=== PATIENT | female | born 1930 | race Asian ===

== ENCOUNTER 2017-03-20 15:36 | Inpatient (IN) | payer OTHER ==
[~2017-03-20] VITALS: Ht 152.4 cm; Wt 58.3 kg
[2017-03-20 16:47] LABS: BASOPHIL % 0.5 % (0-2); PLATELET COUNT 184 x10^3mcL (130-400)
[2017-03-20 16:49] LABS: RED CELL DISTRIBUTION WIDTH 14.9 % (11.5-14.5)
[2017-03-20 17:23] LABS: CALCIUM 9.4 mg/dL (8.5-10.1); CARBON DIOXIDE 28.6 mmol/L (21-32); CHLORIDE SERUM 94 mmol/L (98-107); CREATININE SERUM 0.8 mg/dL (0.6-1.0); GLUCOSE SERUM 95 mg/dL (74-106); POTASSIUM SERUM 3.4 mmol/L (3.5-5.1); SODIUM SERUM 131 mmol/L (136-145)
[2017-03-20 17:28] LABS: ALBUMIN 3.6 g/dL (3.4-5.0); ALKALINE PHOSPHATASE 70 U/L (46-116); ALT/SGPT 20 U/L (14-59); AST/SGOT 21 U/L (15-37); BILIRUBIN TOTAL 0.53 mg/dL (0.20-1.00); LIPASE 171 IU/L (73-393)
[2017-03-20 17:29] LABS: TOTAL PROTEIN, SERUM 8.4 g/dL (6.4-8.2)
[2017-03-20 17:38] LABS: microscopic required? YES; urine erythrocyte TRACE (NEGATIVE)
[2017-03-20] MEDS ORDERED: SIMVASTATIN5 M2 PO (19:33)
[2017-03-20] MEDS ORDERED: LEVOTHYROXIN0.025 M2 PO (19:34)
[2017-03-20] MEDS ORDERED: LOSARTAN POTASS25 M1 PO (19:35)
[2017-03-20] MEDS ORDERED: ALLOPURINOL100 MG PO (19:36)
[2017-03-20] MEDS ORDERED: METFORMIN HCL500 MG PO (19:38)
[2017-03-20 20:05] LABS: CHOLESTEROL/HDL RATIO 1.6; MAGNESIUM 1.8 mg/dL (1.8-2.4); PHOSPHOROUS 3.1 mg/dL (2.5-4.9)
[2017-03-20 20:12] LABS: T3 TOTAL 0.94 ng/mL
[2017-03-20 20:38] LABS: FREE T4 1.39 ng/dL (0.76-1.46); FREE THYROXINE INDEX 4.2 ug/dL (1.4-4.5); T4(THYROXINE) 11.8 ug/dL (4.7-13.3)
[2017-03-20 20:51] VITALS: BP 120/69
[2017-03-20 21:05] LABS: AMPHETAMINE QUAL UR NONE DETECTED (NEG <=1000)
[2017-03-20 21:43] VITALS: BP 135/67
[2017-03-21 00:55] LABS: IRON 68 ug/dL (50-170)
[2017-03-21 01:05] LABS: TOTAL IRON BINDING CAPACITY 190 ug/dL (250-450)
[2017-03-21 01:08] LABS: RED BLOOD CELLS 5.11 M/mm3 (4.10-5.10)
[2017-03-21 05:15] VITALS: BP 119/53
[2017-03-21 06:57] LABS: BASOPHIL % 0.4 % (0-2); PLATELET COUNT 160 x10^3mcL (130-400)
[2017-03-21 06:59] LABS: RED CELL DISTRIBUTION WIDTH 15.2 % (11.5-14.5); rbc morphology (normal/abnorm) ABNORMAL (NORMAL)
[2017-03-21 07:08] LABS: CALCIUM 8.5 mg/dL (8.5-10.1); CARBON DIOXIDE 27.3 mmol/L (21-32); CHLORIDE SERUM 102 mmol/L (98-107); CREATININE SERUM 0.6 mg/dL (0.6-1.0); GLUCOSE SERUM 92 mg/dL (74-106); MAGNESIUM 1.7 mg/dL (1.8-2.4); PHOSPHOROUS 3.2 mg/dL (2.5-4.9); POTASSIUM SERUM 3.4 mmol/L (3.5-5.1); SODIUM SERUM 137 mmol/L (136-145)
[2017-03-21 09:01] VITALS: BP 141/48
[2017-03-21 14:10] VITALS: BP 155/49
[2017-03-21 17:21] VITALS: BP 147/46
[2017-03-21 21:21] VITALS: BP 154/61
[2017-03-22 05:25] VITALS: BP 105/66
[2017-03-22 06:50] LABS: BASOPHIL % 0.4 % (0-2); PLATELET COUNT 167 x10^3mcL (130-400)
[2017-03-22 07:07] LABS: RED CELL DISTRIBUTION WIDTH 15.2 % (11.5-14.5)
[2017-03-22 07:09] LABS: CALCIUM 8.7 mg/dL (8.5-10.1); CARBON DIOXIDE 28.9 mmol/L (21-32); CHLORIDE SERUM 103 mmol/L (98-107); CREATININE SERUM 0.6 mg/dL (0.6-1.0); GLUCOSE SERUM 83 mg/dL (74-106); POTASSIUM SERUM 3.5 mmol/L (3.5-5.1); SODIUM SERUM 139 mmol/L (136-145)
[2017-03-22 07:28] VITALS: Ht 152.4 cm; Wt 58.3 kg
[2017-03-22 10:26] VITALS: BP 134/65
[2017-03-22 12:30] VITALS: BP 160/66
[2017-03-22 16:00] VITALS: BP 151/66
[2017-03-22 21:19] VITALS: BP 94/44
[2017-03-23 05:46] VITALS: BP 111/81
[2017-03-23 07:54] LABS: BASOPHIL % 0.1 % (0-2); PLATELET COUNT 144 x10^3mcL (130-400)
[2017-03-23 08:09] LABS: CALCIUM 8.2 mg/dL (8.5-10.1); CARBON DIOXIDE 25.8 mmol/L (21-32); CHLORIDE SERUM 98 mmol/L (98-107); CREATININE SERUM 0.8 mg/dL (0.6-1.0); GLUCOSE SERUM 107 mg/dL (74-106); MAGNESIUM 1.6 mg/dL (1.8-2.4); PHOSPHOROUS 3.3 mg/dL (2.5-4.9); POTASSIUM SERUM 3.1 mmol/L (3.5-5.1); SODIUM SERUM 132 mmol/L (136-145)
[2017-03-23 09:51] VITALS: BP 126/78
[2017-03-23 13:07] VITALS: BP 148/67
[2017-03-23] MEDS ORDERED: KEFLEX500 M1 PO ×2 (14:00→16:22)
[2017-03-23] MEDS ORDERED: LAC PO ×2 (14:01→16:22)
[2017-03-23 14:41] VITALS: BP 148/67
[2017-03-23] MEDS ORDERED: CARCD120 PO ×2 (15:10→16:22)
== END 2017-03-23 15:37 | disposition home health service (06) | DRG 242 ==
LOC: ED 15:36 → DU 19:23
PROVIDERS: Emergency Medicine; Family Medicine; Internal Medicine Interventional Cardiology; ADMIT Student in an Organized Health Care Education/Training Program
PROC: 02HK3JZ Insertion of Pacemaker Lead into Right Ventricle, Percutaneous Approach (ICD-10-PCS; 2017-03-22)
PROC: 0JH604Z Insertion of Pacemaker, Single Chamber into Chest Subcutaneous Tissue and Fascia, Open Approach (ICD-10-PCS; principal; 2017-03-22 13:30)
DX: I48.91 Unspecified atrial fibrillation (principal); G93.41 Metabolic encephalopathy; N39.0 Urinary tract infection, site not specified; E87.1 Hypo-osmolality and hyponatremia; D68.69 Other thrombophilia; S00.03XA Contusion of scalp, initial encounter; E11.51 Type 2 diabetes mellitus with diabetic peripheral angiopathy without gangrene; M10.9 Gout, unspecified; E87.6 Hypokalemia; E87.8 Other disorders of electrolyte and fluid balance, not elsewhere classified; R31.9 Hematuria, unspecified; D50.9 Iron deficiency anemia, unspecified; E03.9 Hypothyroidism, unspecified; Y93.89 Activity, other specified; W17.89XA Other fall from one level to another, initial encounter; Y92.018 Other place in single-family (private) house as the place of occurrence of the external cause; Z91.81 History of falling; Z68.25 Body mass index [BMI] 25.0-25.9, adult
CPT/HCPCS: 83880; 84439; 94150; C1786; J0690; J0696; J2001; J2250; J3010; J3370; J3475; J3490; J7030; J7040; Q0092; Q9967

== ENCOUNTER 2017-11-23 17:59 | Inpatient (IN) | payer OTHER ==
[~2017-11-23] VITALS: Ht 152.4 cm; Wt 56.4 kg
[~2017-11-23 17:59] MED LIST: ALLOPURINOL100 MG PO; CARCD120 PO; KEFLEX500 M1 PO; LAC PO; LEVOTHYROXIN0.025 M2 PO; LOSARTAN POTASS25 M1 PO; METFORMIN HCL500 MG PO; SIMVASTATIN5 M2 PO
[2017-11-23 18:07] VITALS: Ht 152.4 cm; Wt 56.4 kg
[2017-11-23 20:07] LABS: BASOPHIL % 0.5 % (0-2); PLATELET COUNT 258 x10^3mcL (130-400)
[2017-11-23 20:11] LABS: RED CELL DISTRIBUTION WIDTH 18.4 % (11.5-14.5)
[2017-11-23 20:16] LABS: CALCIUM 9.1 mg/dL (8.5-10.1); CARBON DIOXIDE 30.1 mmol/L (21-32); CHLORIDE SERUM 100 mmol/L (98-107); CREATININE SERUM 0.9 mg/dL (0.6-1.0); GLUCOSE SERUM 90 mg/dL (74-106); POTASSIUM SERUM 3.5 mmol/L (3.5-5.1); SODIUM SERUM 136 mmol/L (136-145)
[2017-11-23 20:20] LABS: ALKALINE PHOSPHATASE 136 U/L (46-116); ALT/SGPT 51 U/L (14-59); AST/SGOT 32 U/L (15-37); LIPASE 164 IU/L (73-393); TOTAL PROTEIN, SERUM 7.3 g/dL (6.4-8.2)
[2017-11-23 20:22] LABS: ALBUMIN 2.8 g/dL (3.4-5.0)
[2017-11-23 20:41] LABS: UA SPECIFIC GRAVITY <=1.005 (1.005-1.035); microscopic required? YES; urine erythrocyte TRACE (NEGATIVE)
[2017-11-23] MEDS ORDERED: ALLOPURINOL100 MG PO (22:22)
[2017-11-23] MEDS ORDERED: METFORMIN HYDR500 M1 PO (22:22)
[2017-11-23] MEDS ORDERED: XARELTO10 M1 PO (22:23)
[2017-11-23] MEDS ORDERED: FUROSEMIDE20 MG PO (22:23)
[2017-11-23] MEDS ORDERED: LOSARTAN POTASS50 M1 PO (22:23)
[2017-11-23] MEDS ORDERED: POTASSIUM CHLO10 MEQ PO (22:23)
[2017-11-23] MEDS ORDERED: TOPROL XL25 MG PO (22:23)
[2017-11-23] MEDS ORDERED: LEVOTHYROXIN0.025 M2 PO (22:25)
[2017-11-23] MEDS ORDERED: LEVOTHYROXINE0.05 M2 PO (22:25)
[2017-11-23] MEDS ORDERED: FERROUS SULFAT325 M2 PO (22:26)
[2017-11-23] MEDS ORDERED: RENAL CAPS1 SGL PO (22:26)
[2017-11-23] MEDS ORDERED: CALCIUM + D3 E1 EACH PO (22:27)
[2017-11-23 23:01] VITALS: BP 151/86
[2017-11-23 23:40] LABS: FREE T4 1.44 ng/dL (0.76-1.46); FREE THYROXINE INDEX 3.2 ug/dL (1.4-4.5); T4(THYROXINE) 8.5 ug/dL (4.7-13.3)
[2017-11-23 23:42] LABS: CHOLESTEROL/HDL RATIO 2.1; MAGNESIUM 1.7 mg/dL (1.8-2.4); PHOSPHOROUS 2.9 mg/dL (2.5-4.9)
[2017-11-24] VITALS (7 sets, daily range): BP systolic 133–156; BP diastolic 67–92
[2017-11-24 00:37] LABS: T3 TOTAL 0.87 ng/mL
[2017-11-24 05:49] LABS: AMPHETAMINE QUAL UR NONE DETECTED (See below)
[2017-11-24 06:26] LABS: PLATELET COUNT 262 x10^3mcL (130-400)
[2017-11-24 06:38] LABS: CALCIUM 8.4 mg/dL (8.5-10.1); CARBON DIOXIDE 31.8 mmol/L (21-32); CHLORIDE SERUM 105 mmol/L (98-107); CREATININE SERUM 0.7 mg/dL (0.6-1.0); GLUCOSE SERUM 101 mg/dL (74-106); MAGNESIUM 1.8 mg/dL (1.8-2.4); SODIUM SERUM 139 mmol/L (136-145)
[2017-11-24 06:43] LABS: POTASSIUM SERUM 2.9 mmol/L (3.5-5.1)
[2017-11-24 07:34] LABS: BASOPHIL % 0 % (0-2); rbc morphology (normal/abnorm) ABNORMAL (NORMAL)
[2017-11-24 07:35] LABS: IRON 20 ug/dL (50-170); TOTAL IRON BINDING CAPACITY 224 ug/dL (250-450)
[2017-11-24 13:22] LABS: CALCIUM 9.7 mg/dL (8.5-10.1); CARBON DIOXIDE 32.3 mmol/L (21-32); CHLORIDE SERUM 102 mmol/L (98-107); CREATININE SERUM 0.8 mg/dL (0.6-1.0); GLUCOSE SERUM 103 mg/dL (74-106); POTASSIUM SERUM 3.2 mmol/L (3.5-5.1); SODIUM SERUM 140 mmol/L (136-145)
[2017-11-25 05:40] VITALS: BP 129/67
[2017-11-25 06:35] LABS: BASOPHIL % 0.1 % (0-2); PLATELET COUNT 238 x10^3mcL (130-400)
[2017-11-25 07:06] LABS: ALKALINE PHOSPHATASE 125 U/L (46-116); ALT/SGPT 43 U/L (14-59); AST/SGOT 30 U/L (15-37); BILIRUBIN DIRECT 0.49 mg/dL (0.0-0.2); BILIRUBIN TOTAL 0.98 mg/dL (0.20-1.00); CALCIUM 8.8 mg/dL (8.5-10.1); CARBON DIOXIDE 27.1 mmol/L (21-32); CHLORIDE SERUM 101 mmol/L (98-107); CREATININE SERUM 0.7 mg/dL (0.6-1.0); GLUCOSE SERUM 92 mg/dL (74-106); MAGNESIUM 1.8 mg/dL (1.8-2.4); POTASSIUM SERUM 3.9 mmol/L (3.5-5.1); SODIUM SERUM 137 mmol/L (136-145); TOTAL PROTEIN, SERUM 7.1 g/dL (6.4-8.2)
[2017-11-25 07:13] LABS: ALBUMIN 2.7 g/dL (3.4-5.0); RED CELL DISTRIBUTION WIDTH 18.7 % (11.5-14.5)
[2017-11-25 07:49] VITALS: BP 153/75
[2017-11-25 13:09] VITALS: BP 120/54
[2017-11-25 17:03] VITALS: BP 112/58
[2017-11-25 21:01] VITALS: BP 141/72
[2017-11-26 06:22] VITALS: BP 139/77
[2017-11-26 07:46] LABS: BASOPHIL % 0.1 % (0-2); PLATELET COUNT 259 x10^3mcL (130-400)
[2017-11-26 08:07] LABS: CALCIUM 9.6 mg/dL (8.5-10.1); CARBON DIOXIDE 28.8 mmol/L (21-32); CHLORIDE SERUM 102 mmol/L (98-107); CREATININE SERUM 0.7 mg/dL (0.6-1.0); GLUCOSE SERUM 124 mg/dL (74-106); PHOSPHOROUS 2.6 mg/dL (2.5-4.9); POTASSIUM SERUM 4.2 mmol/L (3.5-5.1); SODIUM SERUM 137 mmol/L (136-145)
[2017-11-26 08:33] LABS: RED CELL DISTRIBUTION WIDTH 18.3 % (11.5-14.5)
[2017-11-26 08:40] LABS: rbc morphology (normal/abnorm) ABNORMAL (NORMAL)
[2017-11-26 13:18] VITALS: BP 102/71
[2017-11-26 17:27] VITALS: BP 119/55
[2017-11-26 21:00] VITALS: BP 122/57
[2017-11-27 05:17] VITALS: BP 101/71
[2017-11-27 07:03] LABS: BASOPHIL % 0.2 % (0-2); PLATELET COUNT 205 x10^3mcL (130-400)
[2017-11-27 07:05] LABS: RED CELL DISTRIBUTION WIDTH 19.4 % (11.5-14.5); rbc morphology (normal/abnorm) ABNORMAL (NORMAL)
[2017-11-27 07:15] LABS: CARBON DIOXIDE 27.2 mmol/L (21-32); CHLORIDE SERUM 99 mmol/L (98-107); CREATININE SERUM 0.6 mg/dL (0.6-1.0); GLUCOSE SERUM 107 mg/dL (74-106); MAGNESIUM 1.8 mg/dL (1.8-2.4); PHOSPHOROUS 2.4 mg/dL (2.5-4.9); POTASSIUM SERUM 4.1 mmol/L (3.5-5.1); SODIUM SERUM 132 mmol/L (136-145)
[2017-11-27 09:44] VITALS: BP 130/45
[2017-11-27 14:43] VITALS: BP 117/65
[2017-11-27] MEDS ORDERED: METP PO (16:39)
[2017-11-27] MEDS ORDERED: FER300 PO (16:44)
[2017-11-27 18:10] VITALS: BP 107/77
[2017-11-27 19:28] VITALS: BP 107/77
== END 2017-11-27 20:57 | disposition home or self-care (01) | DRG 444 ==
LOC: ED 17:59 → DU 22:02
PROVIDERS: Emergency Medicine; Internal Medicine; Internal Medicine Gastroenterology
PROC: 0DJ08ZZ Inspection of Upper Intestinal Tract, Via Natural or Artificial Opening Endoscopic (ICD-10-PCS; principal; 2017-11-24 10:00)
PROC: 0DBG8ZZ Excision of Left Large Intestine, Via Natural or Artificial Opening Endoscopic (ICD-10-PCS; 2017-11-26 10:30)
PROC: 0DBF8ZZ Excision of Right Large Intestine, Via Natural or Artificial Opening Endoscopic (ICD-10-PCS; 2017-11-26 10:30)
DX: K80.50 Calculus of bile duct without cholangitis or cholecystitis without obstruction (principal); E43 Unspecified severe protein-calorie malnutrition; I50.43 Acute on chronic combined systolic (congestive) and diastolic (congestive) heart failure; K57.30 Diverticulosis of large intestine without perforation or abscess without bleeding; I11.0 Hypertensive heart disease with heart failure; K29.70 Gastritis, unspecified, without bleeding; K64.8 Other hemorrhoids; K63.5 Polyp of colon; E11.51 Type 2 diabetes mellitus with diabetic peripheral angiopathy without gangrene; E11.65 Type 2 diabetes mellitus with hyperglycemia; E83.42 Hypomagnesemia; I48.2 Chronic atrial fibrillation; M10.9 Gout, unspecified; D53.9 Nutritional anemia, unspecified; E03.9 Hypothyroidism, unspecified; Z68.23 Body mass index [BMI] 23.0-23.9, adult; Z79.84 Long term (current) use of oral hypoglycemic drugs; Z79.01 Long term (current) use of anticoagulants; Z95.0 Presence of cardiac pacemaker
CPT/HCPCS: 36600; 43235; 45378; 78226; 83880; 84439; 97116-GP; 97530-GP; 97535-GP; A9537; J1200; J1610; J1940; J2250; J2310; J3010; J3480; J3490; J7030; J7060; J7070; Q0092

== ENCOUNTER 2018-08-15 14:12 | Inpatient (IN) | payer OTHER ==
[~2018-08-15] VITALS: Ht 152.4 cm; Wt 47.9 kg
[~2018-08-15 14:12] MED LIST changes: +CALCIUM + D3 E1 EACH PO; +FER300 PO; +FERROUS SULFAT325 M2 PO; +FUROSEMIDE20 MG PO; +LEVOTHYROXINE0.05 M2 PO; +LOSARTAN POTASS50 M1 PO; +METFORMIN HYDR500 M1 PO; +METP PO; +POTASSIUM CHLO10 MEQ PO; +RENAL CAPS1 SGL PO; +TOPROL XL25 MG PO; +XARELTO10 M1 PO
[2018-08-15 14:22] VITALS: Ht 152.4 cm; Wt 47.9 kg
[2018-08-15 17:42] LABS: BASOPHIL % 0.3 % (0-2); PLATELET COUNT 364 x10^3mcL (130-400)
[2018-08-15 17:46] LABS: CALCIUM 9.1 mg/dL (8.5-10.1); CARBON DIOXIDE 27.1 mmol/L (21-32); CHLORIDE SERUM 93 mmol/L (98-107); CREATININE SERUM 0.8 mg/dL (0.6-1.0); GLUCOSE SERUM 127 mg/dL (74-106); POTASSIUM SERUM 3.7 mmol/L (3.5-5.1); SODIUM SERUM 128 mmol/L (136-145)
[2018-08-15 17:53] LABS: ALBUMIN 2.6 g/dL (3.4-5.0); ALKALINE PHOSPHATASE 422 U/L (46-116); ALT/SGPT 65 U/L (14-59); AST/SGOT 79 U/L (15-37); BILIRUBIN TOTAL 4.44 mg/dL (0.20-1.00); LIPASE 220 IU/L (73-393)
[2018-08-15 19:05] LABS: MAGNESIUM 1.5 mg/dL (1.8-2.4); PHOSPHOROUS 2.8 mg/dL (2.5-4.9)
[2018-08-15 19:13] LABS: CHOLESTEROL/HDL RATIO 5.5
[2018-08-15] MEDS ORDERED: METOPROLOL ER-1 EAC1 PO (20:04)
[2018-08-15 20:05] LABS: microscopic required? YES; urine erythrocyte 2+ (NEGATIVE)
[2018-08-15] MEDS ORDERED: XARELTO10 M1 PO (20:05)
[2018-08-15] MEDS ORDERED: METOPROLOL ER-1 EAC2 PO (20:08)
[2018-08-15 20:12] LABS: AMPHETAMINE QUAL UR NONE DETECTED (See below)
[2018-08-16] VITALS (11 sets, daily range): BP systolic 83–124; BP diastolic 46–70
[2018-08-16 06:01] LABS: BASOPHIL % 0.1 % (0-2); PLATELET COUNT 293 x10^3mcL (130-400)
[2018-08-16 06:15] LABS: ALBUMIN 2.5 g/dL (3.4-5.0); ALKALINE PHOSPHATASE 300 U/L (46-116); ALT/SGPT 47 U/L (14-59); AST/SGOT 63 U/L (15-37); BILIRUBIN TOTAL 4.25 mg/dL (0.20-1.00); CALCIUM 8.3 mg/dL (8.5-10.1); CARBON DIOXIDE 27.1 mmol/L (21-32); CHLORIDE SERUM 98 mmol/L (98-107); CREATININE SERUM 0.8 mg/dL (0.6-1.0); GLUCOSE SERUM 97 mg/dL (74-106); MAGNESIUM 1.8 mg/dL (1.8-2.4); PHOSPHOROUS 3.2 mg/dL (2.5-4.9); POTASSIUM SERUM 3.5 mmol/L (3.5-5.1); SODIUM SERUM 132 mmol/L (136-145); TOTAL PROTEIN, SERUM 6.4 g/dL (6.4-8.2)
[2018-08-17 06:30] VITALS: BP 131/73
[2018-08-17 06:48] LABS: ALBUMIN 2.1 g/dL (3.4-5.0); ALKALINE PHOSPHATASE 279 U/L (46-116); ALT/SGPT 54 U/L (14-59); AST/SGOT 69 U/L (15-37); CALCIUM 8.3 mg/dL (8.5-10.1); CARBON DIOXIDE 26.2 mmol/L (21-32); CHLORIDE SERUM 97 mmol/L (98-107); CREATININE SERUM 0.8 mg/dL (0.6-1.0); GLUCOSE SERUM 155 mg/dL (74-106); MAGNESIUM 2.1 mg/dL (1.8-2.4); POTASSIUM SERUM 3.1 mmol/L (3.5-5.1); SODIUM SERUM 131 mmol/L (136-145); TOTAL PROTEIN, SERUM 6.1 g/dL (6.4-8.2)
[2018-08-17 07:03] LABS: BASOPHIL % 0 % (0-2); PLATELET COUNT 322 x10^3mcL (130-400); RED CELL DISTRIBUTION WIDTH 18.8 % (11.5-14.5)
[2018-08-17 08:01] VITALS: BP 166/70
[2018-08-17 10:21] VITALS: BP 97/50
[2018-08-17 12:26] VITALS: BP 105/63
[2018-08-17 16:31] VITALS: BP 122/58
[2018-08-17 19:59] VITALS: BP 138/74
[2018-08-18 06:10] LABS: PLATELET COUNT 341 x10^3mcL (130-400)
[2018-08-18 06:21] LABS: RED CELL DISTRIBUTION WIDTH 19.2 % (11.5-14.5)
[2018-08-18 06:33] LABS: ALKALINE PHOSPHATASE 252 U/L (46-116); ALT/SGPT 46 U/L (14-59); AST/SGOT 47 U/L (15-37); BILIRUBIN TOTAL 1.69 mg/dL (0.20-1.00); CALCIUM 8.5 mg/dL (8.5-10.1); CARBON DIOXIDE 28.5 mmol/L (21-32); CHLORIDE SERUM 103 mmol/L (98-107); CREATININE SERUM 0.6 mg/dL (0.6-1.0); GLUCOSE SERUM 103 mg/dL (74-106); LIPASE 130 IU/L (73-393); POTASSIUM SERUM 3.8 mmol/L (3.5-5.1); SODIUM SERUM 136 mmol/L (136-145); TOTAL PROTEIN, SERUM 6.3 g/dL (6.4-8.2)
[2018-08-18 06:34] LABS: ALBUMIN 2.1 g/dL (3.4-5.0)
[2018-08-18 07:55] VITALS: BP 119/89
[2018-08-18 12:10] VITALS: BP 115/63
[2018-08-18 12:55] LABS: BAND NEUTROPHIL 0 % (0-10); BASOPHIL 0 % (0-2); MONOCYTE 9 % (0-7); SEGMENTED NEUTROPHILS 77 % (37-75); rbc morphology (normal/abnorm) ABNORMAL (NORMAL)
[2018-08-18 12:56] LABS: ovalocyte/elliptocyte 1+; target cell (codocyte) 1+
[2018-08-18 16:17] VITALS: BP 100/65
[2018-08-18 20:20] VITALS: BP 150/66
[2018-08-19 05:53] VITALS: BP 160/73
[2018-08-19 06:15] LABS: ALKALINE PHOSPHATASE 226 U/L (46-116); ALT/SGPT 44 U/L (14-59); AST/SGOT 45 U/L (15-37); BILIRUBIN TOTAL 1.4 mg/dL (0.20-1.00); CALCIUM 8.4 mg/dL (8.5-10.1); CARBON DIOXIDE 27.8 mmol/L (21-32); CHLORIDE SERUM 105 mmol/L (98-107); CREATININE SERUM 0.8 mg/dL (0.6-1.0); GLUCOSE SERUM 132 mg/dL (74-106); POTASSIUM SERUM 4.4 mmol/L (3.5-5.1); SODIUM SERUM 138 mmol/L (136-145); TOTAL PROTEIN, SERUM 6.2 g/dL (6.4-8.2)
[2018-08-19 06:28] LABS: ALBUMIN 1.9 g/dL (3.4-5.0)
[2018-08-19 06:43] LABS: PLATELET COUNT 337 x10^3mcL (130-400)
[2018-08-19 06:49] LABS: BASOPHIL % 0 % (0-2); RED CELL DISTRIBUTION WIDTH 19.6 % (11.5-14.5)
[2018-08-19 08:00] VITALS: BP 155/85
[2018-08-19 12:23] VITALS: BP 145/86
[2018-08-19 14:06] VITALS: BP 148/74
[2018-08-19 18:03] VITALS: BP 156/84
[2018-08-19 20:49] VITALS: BP 131/61
[2018-08-20 06:03] VITALS: BP 147/77
[2018-08-20 07:19] LABS: BASOPHIL % 0.4 % (0-2); PLATELET COUNT 331 x10^3mcL (130-400)
[2018-08-20 07:30] LABS: RED CELL DISTRIBUTION WIDTH 19.9 % (11.5-14.5)
[2018-08-20 07:53] LABS: ALKALINE PHOSPHATASE 200 U/L (46-116); ALT/SGPT 41 U/L (14-59); AST/SGOT 44 U/L (15-37); BILIRUBIN TOTAL 1.2 mg/dL (0.20-1.00); CALCIUM 8.6 mg/dL (8.5-10.1); CARBON DIOXIDE 28.6 mmol/L (21-32); CHLORIDE SERUM 105 mmol/L (98-107); CREATININE SERUM 0.7 mg/dL (0.6-1.0); GLUCOSE SERUM 79 mg/dL (74-106); MAGNESIUM 1.8 mg/dL (1.8-2.4); POTASSIUM SERUM 3.9 mmol/L (3.5-5.1); SODIUM SERUM 139 mmol/L (136-145)
[2018-08-20 07:54] LABS: ALBUMIN 1.9 g/dL (3.4-5.0); TOTAL PROTEIN, SERUM 6.1 g/dL (6.4-8.2)
[2018-08-20 09:49] VITALS: BP 111/32
[2018-08-20 17:26] VITALS: BP 161/78
[2018-08-20 18:31] VITALS: BP 145/79
[2018-08-20 19:32] VITALS: BP 130/65
[2018-08-21 06:09] VITALS: BP 165/76
[2018-08-21 08:46] VITALS: BP 141/79
[2018-08-21 17:31] VITALS: BP 145/85
[2018-08-21 20:23] VITALS: BP 120/72
[2018-08-22 06:09] VITALS: BP 157/81
[2018-08-22 06:45] LABS: BASOPHIL % 0.2 % (0-2); PLATELET COUNT 321 x10^3mcL (130-400)
[2018-08-22 06:59] LABS: ALKALINE PHOSPHATASE 169 U/L (46-116); ALT/SGPT 32 U/L (14-59); AST/SGOT 33 U/L (15-37); CALCIUM 8.5 mg/dL (8.5-10.1); CARBON DIOXIDE 28.1 mmol/L (21-32); CHLORIDE SERUM 105 mmol/L (98-107); CREATININE SERUM 0.6 mg/dL (0.6-1.0); GLUCOSE SERUM 89 mg/dL (74-106); MAGNESIUM 1.9 mg/dL (1.8-2.4); POTASSIUM SERUM 3.7 mmol/L (3.5-5.1); SODIUM SERUM 139 mmol/L (136-145); TOTAL PROTEIN, SERUM 6.2 g/dL (6.4-8.2)
[2018-08-22 07:08] LABS: RED CELL DISTRIBUTION WIDTH 19.9 % (11.5-14.5)
[2018-08-22 07:12] LABS: ALBUMIN 1.9 g/dL (3.4-5.0)
[2018-08-22 07:45] VITALS: BP 154/77
[2018-08-22 14:10] VITALS: BP 154/77
== END 2018-08-22 17:19 | disposition home or self-care (01) | DRG 854 ==
LOC: ED 14:12 → DU 19:04 → IC 19:04 → MU 19:04 → IC 08-16 02:13 → DU 08-16 12:27 → MU 08-19 11:55
PROVIDERS: Emergency Medicine; Internal Medicine; Internal Medicine Pulmonary Disease; Surgery; ADMIT Internal Medicine Pulmonary Disease
PROC: 0FC98ZZ Extirpation of Matter from Common Bile Duct, Via Natural or Artificial Opening Endoscopic (ICD-10-PCS; principal; 2018-08-16)
PROC: 0F798ZZ Dilation of Common Bile Duct, Via Natural or Artificial Opening Endoscopic (ICD-10-PCS; 2018-08-16)
PROC: BF10YZZ Fluoroscopy of Bile Ducts using Other Contrast (ICD-10-PCS; 2018-08-16)
PROC: 0FT44ZZ Resection of Gallbladder, Percutaneous Endoscopic Approach (ICD-10-PCS; 2018-08-17 08:30)
DX: A41.9 Sepsis, unspecified organism (principal); K80.71 Calculus of gallbladder and bile duct without cholecystitis with obstruction; K80.31 Calculus of bile duct with cholangitis, unspecified, with obstruction; E11.9 Type 2 diabetes mellitus without complications; M10.9 Gout, unspecified; E03.9 Hypothyroidism, unspecified; I48.2 Chronic atrial fibrillation; I25.10 Atherosclerotic heart disease of native coronary artery without angina pectoris; I10 Essential (primary) hypertension; Z95.0 Presence of cardiac pacemaker; Z68.20 Body mass index [BMI] 20.0-20.9, adult; Z79.01 Long term (current) use of anticoagulants; Z79.84 Long term (current) use of oral hypoglycemic drugs; Z86.73 Personal history of transient ischemic attack (TIA), and cerebral infarction without residual deficits
CPT/HCPCS: 43262; 82962; 83880; 97110-GP; 97116-GP; 97530-GP; C1726; C1769; C1887; J0330; J0694; J1610; J1720; J2175; J2270; J2370; J2405; J2543; J2704; J3010; J3430; J3475; J3490; J7030; J7040; J7050; J7120; P9047; Q0092; Q9967